=== PATIENT | female | born 1970 | race Caucasian/White ===

== ENCOUNTER → 2017-02-26 | Outpatient (CLI) | payer OTHER ==
[~2017-02-26] MED LIST: ASPIRIN325 MG PO; ATENOLOL25 MG PO; BACTRIM DS 8001 TA1 PO; BUSPAR5 MG PO; CELEXA40 MG PO; CIPRO500 MG PO; CYCLOBENZAPRINE10 MG PO; DAYPRO600 M1 PO; DICLOFENAC POTA50 MG PO; FLAGYL500 MG PO; FLEXERIL5 MG PO; HYDROCODONE BIT1 T11 PO; IBU800 M1 PO; IBUPROFEN600 MG PO; LISINOPRIL10 MG PO; LISINOPRIL5 MG PO; MOTRIN600 MG PO; Motrin,Rufen800 MG PO; NORVASC5 MG PO; OXYCODONE-ACETAMINOP; PERCOCET 325 MG1 TA5 PO; PERCOCET 325 MG1 TA6 PO; PREDNISONE20 MG PO; PYRIDIUM200 MG PO; Percocet 325 MG1 TAB PO; ROBAXIN750 MG PO; TERAZOL V; TOPAMAX50 MG PO; TRAMADOL50 MG PO; ULTRAM50 MG PO; VAG V; VENLAFAXINE HYD75 MG PO; VICODIN 500 MG-1 TAB PO; VICTOZA6 MG/ML SC; XANAX0.25 MG PO
== END ==
LOC: MAMMO 07:14 → US 07:30
DX: Z12.31 Encounter for screening mammogram for malignant neoplasm of breast (principal); K76.0 Fatty (change of) liver, not elsewhere classified; R74.8 Abnormal levels of other serum enzymes; Z90.49 Acquired absence of other specified parts of digestive tract

== ENCOUNTER → 2017-09-25 | Outpatient (CLI) | payer OTHER | END | disposition home or self-care (01) | LOC: US 09-09 09:30 | DX: R16.0 Hepatomegaly, not elsewhere classified (principal); K76.0 Fatty (change of) liver, not elsewhere classified; Z90.49 Acquired absence of other specified parts of digestive tract ==

== ENCOUNTER 2018-04-28 11:09 | Emergency (ER) | payer OTHER ==
[~2018-04-28] VITALS: Ht 154.9 cm; Wt 80.3 kg
--- NOTE | ~2018-04-28 | EKG ---
[place], [place] ELECTROCARDIOGRAM REPORT NAME: DAKOTA HERNANDEZ UNIT #: [id number] ROOM: DOCTOR: RAMON DRAFT REPORT BIRTHDATE: [birth year] [facility] Test Date: 2018-04-28 Test Time: 11:58:35 Pat Name: DAKOTA HERNANDEZ Department: ER Room: 10 Gender: F Deep Tissue Massage Therapist: EKG.DC : 1970 Requested By: EGRARD SALAZAR Order Number: [id number] Reading MD: Xiao Ruff MD Measurements Intervals [place] Rate: 75 P: 223 NE: 146 QRS: 12 QRSD: 111 T: 1 QT: 423 QTc: 473 Interpretive Statements Sinus or ectopic atrial rhythm Low voltage, precordial leads Repol abnrm suggests ischemia, inferior leads Electronically Signed On 04-29-2018 9:31:10 PST by Xiao Ruff MD CM:EKGRPT:ELECTROCARDIOGRAM REPORT [id number] GERARD LERNER DRAFT REPORT GERARD SALAZAR DO
[2018-04-28 12:17] LABS: BASO # 0.1 10*3/uL (0.0-0.1); BASO % 0.8 % (0.0-1.0); EOS # 0.3 10*3/uL (0.0-0.4); EOS % 3.4 % (1.0-4.0); HEMATOCRIT 41.7 % (37.0-47.0); HEMOGLOBIN 13.6 g/dl (12.0-16.0); LYMPH # 1.8 10*3/uL (1.3-4.4); LYMPH % 18.7 % (27.0-41.0); MEAN CELL VOLUME 90.1 fl (81.0-99.0); MEAN CORPUSCULAR HGB 29.4 pg (27.0-31.0); MEAN CORPUSCULAR HGB CONC 32.6 g/dl (33.0-37.0); MEAN PLATELET VOLUME 9.9 fl (9.6-12.3); MONO # 0.6 10*3/uL (0.1-1.0); NEUT % 70.7 % (47.0-73.0); PLATELET COUNT AUTOMATED 294 10*3/uL (130-400); RED BLOOD COUNT 4.63 10*6/uL (4.10-5.10); RED CELL DISTRI WIDTH 14.6 % (0-14.5); WHITE BLOOD COUNT 9.8 10*3/uL (4.8-10.8)
[2018-04-28 12:26] LABS: ACT PARTIAL THROMBO TIME 23.4 SECONDS (20.8-31.5); INTERNATIONAL NORM RATIO 0.9 (2.0-3.5)
[2018-04-28 12:37] LABS: ALBUMIN 3.5 gm/dl (3.1-4.5); ALKALINE PHOSPHATASE 109 U/L (45-117); BUN 22 mg/dl (7-24); CHLORIDE 109 mmol/L (98-107); CREATININE 0.64 mg/dL (0.55-1.02); LIPASE 201 U/L (73-393); SGOT/AST 26 IU/L (3-35); SGPT/ALT 56 U/L (12-78); SODIUM 141 mmol/L (136-145); TOTAL PROTEIN 7.3 gm/dL (6.4-8.2)
[2018-04-28 12:39] LABS: TROPONIN I < 0.015 ng/ml (<0.045)
[2018-04-28] MEDS ORDERED: CYCLOBENZAPRINE10 MG PO (14:24)
[2018-04-28] MEDS ORDERED: PREDNISONE50 MG PO (14:24)
[2018-04-28] MEDS ORDERED: ZOFRAN4 MG PO (14:24)
[2018-04-28] MEDS ORDERED: Meclizine25 MG PO (14:24)
== END 2018-04-28 14:36 | disposition home or self-care (01) ==
LOC: ED 11:09
PROVIDERS: Emergency Medicine
DX: S16.1XXA Strain of muscle, fascia and tendon at neck level, initial encounter (principal); R42 Dizziness and giddiness; R51 Headache; E11.9 Type 2 diabetes mellitus without complications; I10 Essential (primary) hypertension; F17.200 Nicotine dependence, unspecified, uncomplicated; Z90.49 Acquired absence of other specified parts of digestive tract; Z90.710 Acquired absence of both cervix and uterus; Z79.899 Other long term (current) drug therapy; X50.0XXA Overexertion from strenuous movement or load, initial encounter; Y93.89 Activity, other specified; Y92.69 Other specified industrial and construction area as the place of occurrence of the external cause; Y99.0 Civilian activity done for income or pay

== ENCOUNTER 2018-05-06 14:15 | Emergency (ER) | payer OTHER ==
[~2018-05-06] VITALS: Ht 154.9 cm; Wt 80.3 kg
[~2018-05-06 14:15] MED LIST changes: +Meclizine25 MG PO; +PREDNISONE50 MG PO; +ZOFRAN4 MG PO
== END 2018-05-06 17:10 | disposition home or self-care (01) ==
LOC: ED 14:15
DX: S46.912A Strain of unspecified muscle, fascia and tendon at shoulder and upper arm level, left arm, initial encounter (principal); S50.02XA Contusion of left elbow, initial encounter; Z79.899 Other long term (current) drug therapy; W00.0XXA Fall on same level due to ice and snow, initial encounter; Y93.89 Activity, other specified; Y92.89 Other specified places as the place of occurrence of the external cause; Y99.8 Other external cause status

== ENCOUNTER → 2020-03-16 | Outpatient (CLI) | payer SELFPAY ==
[~2020-03-16] MED LIST changes: +PREDNISONE20 M1 PO; +VALTREX1000 MG PO
== END | disposition home or self-care (01) ==
LOC: MAMMO 03:10
PROVIDERS: ATTEND Internal Medicine
DX: Z12.31 Encounter for screening mammogram for malignant neoplasm of breast (principal)

== ENCOUNTER 2021-04-15 11:56 | Emergency (ER) | payer OTHER ==
[~2021-04-15] VITALS: Ht 154.9 cm; Wt 94.8 kg
[2021-04-15] MEDS ORDERED: NAPROXEN250 MG PO (16:34)
[2021-04-15] MEDS ORDERED: TYLENOL325 M1 PO (16:34)
[2021-04-15] MEDS ORDERED: CYCLOBENZAPRINE10 MG PO (16:34)
== END 2021-04-15 16:47 | disposition home or self-care (01) ==
LOC: ED 11:56
DX: M54.6 Pain in thoracic spine (principal); M54.2 Cervicalgia; E11.9 Type 2 diabetes mellitus without complications; I10 Essential (primary) hypertension; Z79.899 Other long term (current) drug therapy

== ENCOUNTER → 2021-11-22 | Outpatient (CLI) | payer OTHER ==
[~2021-11-22] MED LIST changes: +NAPROXEN250 MG PO; +TYLENOL325 M1 PO
== END | disposition home or self-care (01) ==
LOC: MAMMO 11-06 15:00
PROVIDERS: ATTEND Internal Medicine
DX: Z12.31 Encounter for screening mammogram for malignant neoplasm of breast (principal)

== ENCOUNTER 2023-07-24 13:01 | Emergency (ER) | payer OTHER ==
[~2023-07-24] VITALS: Ht 154.9 cm; Wt 85.7 kg
[2023-07-24] MEDS ORDERED: JARDIANCE25 MG PO (13:21)
[2023-07-24] MEDS ORDERED: ATORVASTATIN CA40 M1 PO (13:21)
[2023-07-24] MEDS ORDERED: DIAZEPAM 5 MG TAB PO ONE (13:25)
[2023-07-24] MEDS ORDERED: Meclizine Hydrochloride 25 MG TAB PO ONE (13:25)
[2023-07-24] MEDS ORDERED: SODIUM CHLORIDE 0.9% 1,000 ML IV ONE (13:25)
[2023-07-24 13:37] LABS: BASO # 0.1 10*3/uL (0.0-0.1); BASO % 0.6 % (0.0-1.0); EOS # 0.1 10*3/uL (0.0-0.4); EOS % 1.6 % (1.0-4.0); HEMATOCRIT 45.4 % (37.0-47.0); LYMPH # 2.3 10*3/uL (1.3-4.4); LYMPH % 28.9 % (27.0-41.0); MEAN CELL VOLUME 88.7 fl (81.0-99.0); MEAN CORPUSCULAR HGB 28.7 pg (27.0-31.0); MEAN CORPUSCULAR HGB CONC 32.4 g/dl (33.0-37.0); MEAN PLATELET VOLUME 9.3 fl (9.6-12.3); MONO # 0.6 10*3/uL (0.1-1.0); MONO % 6.9 % (3.0-9.0); NEUT % 61.6 % (47.0-73.0); PLATELET COUNT AUTOMATED 284 10*3/uL (130-400); RED BLOOD COUNT 5.12 10*6/uL (4.10-5.10); RED CELL DISTRI WIDTH 13.6 % (0-14.5); WHITE BLOOD COUNT 8.1 10*3/uL (4.8-10.8)
[2023-07-24 14:03] LABS: ALKALINE PHOSPHATASE 106 U/L (46-116); BUN 11 mg/dl (9-23); CHLORIDE 108 mmol/L (98-107); POTASSIUM 3.9 mmol/L (3.4-5.1); SGPT/ALT 56 U/L (5-49); TOTAL PROTEIN 7.3 gm/dL (6.0-8.0)
[2023-07-24] MEDS ORDERED: ANTIVERT25 M2 PO (14:59)
== END 2023-07-24 15:14 | disposition home or self-care (01) ==
LOC: ED 13:01
PROVIDERS: Emergency Medicine
DX: H81.10 Benign paroxysmal vertigo, unspecified ear (principal); F32.A Depression, unspecified; F41.9 Anxiety disorder, unspecified; I10 Essential (primary) hypertension; Z79.899 Other long term (current) drug therapy; Z90.711 Acquired absence of uterus with remaining cervical stump; Z98.890 Other specified postprocedural states

== ENCOUNTER → 2024-05-31 | Outpatient (CLI) | payer OTHER ==
[~2024-05-31] MED LIST changes: +ANTIVERT25 M2 PO; +ATORVASTATIN CA40 M1 PO; +JARDIANCE25 MG PO; +MOUNJARO5 MG/0.51 SQ; +PYRIDIUM100 MG PO; +SEPTDS PO
== END | disposition home or self-care (01) ==
LOC: MAMMO 05-13 09:30
PROVIDERS: ATTEND Internal Medicine
DX: Z12.31 Encounter for screening mammogram for malignant neoplasm of breast (principal); R92.313 Mammographic fatty tissue density, bilateral breasts

== ENCOUNTER → 2024-10-25 | Outpatient (CLI) | payer OTHER | LOC: US 10-11 10:30 | PROVIDERS: ATTEND Internal Medicine | DX: K76.0 Fatty (change of) liver, not elsewhere classified (principal); N28.89 Other specified disorders of kidney and ureter ==